=== PATIENT | female | born 1990 | race American Indian/Alaskan Native ===

== ENCOUNTER 2020-05-08 13:52 | Emergency (ER) | payer OTHER ==
[~2020-05-08] VITALS: Ht 157.5 cm; Wt 77.1 kg
[~2020-05-08 13:52] MED LIST: PRENATAL1 TAB
== END 2020-05-08 16:01 | disposition home or self-care (01) ==
LOC: ER 13:52
DX: N64.52 Nipple discharge (principal)

== ENCOUNTER 2020-06-04 19:49 | Emergency (ER) | payer OTHER ==
[~2020-06-04] VITALS: Ht 157.5 cm; Wt 81.2 kg
== END 2020-06-04 22:00 | disposition home or self-care (01) ==
LOC: ER 19:49
DX: S93.492A Sprain of other ligament of left ankle, initial encounter (principal); X50.0XXA Overexertion from strenuous movement or load, initial encounter; Y93.01 Activity, walking, marching and hiking; Y92.488 Other paved roadways as the place of occurrence of the external cause; Y99.8 Other external cause status

== ENCOUNTER 2022-02-07 01:22 | Emergency (ER) | payer OTHER ==
[~2022-02-07] VITALS: Ht 160 cm; Wt 81.2 kg
[2022-02-07] MEDS ORDERED: CEPHALEXIN500 MG PO (04:32)
== END 2022-02-07 04:25 | disposition home or self-care (01) ==
LOC: ER 01:22
DX: R30.0 Dysuria (principal)

== ENCOUNTER 2022-04-03 15:37 | Outpatient (CLI) | payer OTHER ==
[~2022-04-03 15:37] MED LIST changes: +CEPHALEXIN500 MG PO
== END 2022-04-03 16:51 | disposition home or self-care (01) ==
LOC: PRENATAL 15:37
PROVIDERS: ATTEND Obstetrics & Gynecology Maternal & Fetal Medicine
DX: O98.919 Unspecified maternal infectious and parasitic disease complicating pregnancy, unspecified trimester (principal); O36.80X0 Pregnancy with inconclusive fetal viability, not applicable or unspecified; Z14.8 Genetic carrier of other disease; Z3A.12 12 weeks gestation of pregnancy; Z36.0 Encounter for antenatal screening for chromosomal anomalies; O99.210 Obesity complicating pregnancy, unspecified trimester

== ENCOUNTER 2022-05-02 09:49 | Emergency (ER) | payer OTHER ==
[~2022-05-02] VITALS: Ht 160 cm; Wt 97.1 kg
== END 2022-05-02 15:19 | disposition home or self-care (01) ==
LOC: ER 09:49
DX: O23.42 Unspecified infection of urinary tract in pregnancy, second trimester (principal); Z3A.15 15 weeks gestation of pregnancy; N39.0 Urinary tract infection, site not specified; Z88.6 Allergy status to analgesic agent

== ENCOUNTER 2022-07-04 08:17 | Outpatient (CLI) | payer OTHER | END 2022-07-04 10:14 | disposition home or self-care (01) | LOC: PRENATAL 08:17 | PROVIDERS: ATTEND Obstetrics & Gynecology Maternal & Fetal Medicine | DX: O26.849 Uterine size-date discrepancy, unspecified trimester (principal); O99.210 Obesity complicating pregnancy, unspecified trimester; O44.00 Complete placenta previa NOS or without hemorrhage, unspecified trimester; O26.879 Cervical shortening, unspecified trimester; Z3A.25 25 weeks gestation of pregnancy ==

== ENCOUNTER 2022-07-25 22:49 | Outpatient (CLI) | payer OTHER ==
[2022-07-25] MEDS ORDERED: ROBITUSSIN COU237 M1 (22:56)
[2022-07-25] MEDS ORDERED: ACETAMINOPHEN500 M2 (22:57)
[2022-07-25] MEDS ORDERED: PRENATAL TABLE1 EAC3 (22:57)
== END 2022-07-26 08:55 | disposition home or self-care (01) ==
LOC: OBS/DEL 22:49 → PRENATAL 08-24 10:30
PROVIDERS: ATTEND Obstetrics & Gynecology
DX: O23.43 Unspecified infection of urinary tract in pregnancy, third trimester (principal); N39.0 Urinary tract infection, site not specified; O99.513 Diseases of the respiratory system complicating pregnancy, third trimester; J06.9 Acute upper respiratory infection, unspecified; Z3A.28 28 weeks gestation of pregnancy; Z88.3 Allergy status to other anti-infective agents; Z88.5 Allergy status to narcotic agent

== ENCOUNTER 2022-08-08 20:10 | Outpatient (CLI) | payer OTHER ==
[~2022-08-08] VITALS: Ht 160 cm; Wt 102.5 kg
[~2022-08-08 20:10] MED LIST changes: +ACETAMINOPHEN500 M2; +PRENATAL TABLE1 EAC3; +ROBITUSSIN COU237 M1
[2022-08-08] MEDS ORDERED: ENDOMETRIN100 MG VAG (23:32)
== END 2022-08-09 15:06 | disposition home or self-care (01) ==
LOC: OBS/DEL 20:10
PROVIDERS: ATTEND Obstetrics & Gynecology
DX: O26.893 Other specified pregnancy related conditions, third trimester (principal); Z3A.30 30 weeks gestation of pregnancy; Z88.5 Allergy status to narcotic agent; Z88.8 Allergy status to other drugs, medicaments and biological substances

== ENCOUNTER 2022-08-24 09:33 | Outpatient (CLI) | payer OTHER ==
[~2022-08-24 09:33] MED LIST changes: +ENDOMETRIN100 MG VAG
== END 2022-08-24 11:48 | disposition home or self-care (01) ==
LOC: PRENATAL 09:33
PROVIDERS: ATTEND Obstetrics & Gynecology Maternal & Fetal Medicine
DX: O26.849 Uterine size-date discrepancy, unspecified trimester (principal); O44.00 Complete placenta previa NOS or without hemorrhage, unspecified trimester; O26.879 Cervical shortening, unspecified trimester; Z3A.32 32 weeks gestation of pregnancy

== ENCOUNTER 2022-09-06 00:10 | Outpatient (CLI) | payer OTHER | END 2022-09-06 11:03 | disposition home or self-care (01) | LOC: OBS/DEL 00:10 | PROVIDERS: ATTEND Obstetrics & Gynecology | DX: O26.893 Other specified pregnancy related conditions, third trimester (principal); Z3A.34 34 weeks gestation of pregnancy; S93.402A Sprain of unspecified ligament of left ankle, initial encounter; W19.XXXA Unspecified fall, initial encounter; Y93.9 Activity, unspecified; Y92.9 Unspecified place or not applicable; Y99.9 Unspecified external cause status; Z88.3 Allergy status to other anti-infective agents; Z88.5 Allergy status to narcotic agent ==

== ENCOUNTER 2022-09-09 13:36 | Outpatient (CLI) | payer OTHER | END 2022-09-10 09:00 | disposition home or self-care (01) | LOC: OBS/DEL 13:36 | PROVIDERS: ATTEND Obstetrics & Gynecology | DX: O47.03 False labor before 37 completed weeks of gestation, third trimester (principal); Z3A.35 35 weeks gestation of pregnancy; Z88.3 Allergy status to other anti-infective agents; Z88.5 Allergy status to narcotic agent ==